=== PATIENT | female | born 2005 | race Asian ===

== ENCOUNTER 2025-01-14 10:09 | Emergency (ER) | payer MEDICAID ==
[~2025-01-14] VITALS: Ht 142.2 cm; Wt 65.9 kg
[~2025-01-14 10:09] MED LIST: ALBU8HFA PO
[2025-01-14] MEDS ORDERED: acetaminophen 325mg tablet PO ONE ×2 (10:45)
[2025-01-14] MEDS: acetaminophen 325mg tablet PO ONE (10:52)
--- NOTE | 2025-01-14 10:57 | RADIOLOGY REPORT ---
EXAM: XR Abdomen, 1 View CLINICAL INDICATION: left flank pain TECHNIQUE: Frontal supine view of the abdomen/pelvis. COMPARISON: None FINDINGS: GASTROINTESTINAL TRACT: Fecal retention in the colon consistent with constipation. No dilation. BONES/JOINTS: Unremarkable. No acute fracture. OTHER FINDINGS: . IMPRESSION: Fecal retention in the colon consistent with constipation.
[2025-01-14 11:03] LABS: BASOPHILS % (AUTO) 0.3 % (0-1); EOSINOPHILS % (AUTO) 0 % (0-6); HEMATOCRIT 38.6 % (35.0-45.0); HEMOGLOBIN 13.1 g/dl (12.0-16.0); LYMPHOCYTES # (AUTO) 1.7 X10'3 (1.1-4.8); LYMPHOCYTES % (AUTO) 15.1 % (21-51); MEAN CORPUSCULAR HEMOGLOBIN 29.3 PG (27.0-31.0); MEAN CORPUSCULAR HGB CONC 33.8 g/dL (33.0-36.5); MEAN CORPUSCULAR VOLUME 86.5 FL (78-98); MEAN PLATELET VOLUME 7.1 FL (7.4-10.4); MONOCYTES # (AUTO) 1.1 X10'3 (0-0.9); MONOCYTES % (AUTO) 9.7 % (2-12); NEUTROPHILS # (AUTO) 8.5 X10'3 (1.8-7.7); NEUTROPHILS % (AUTO) 74.9 % (42-75); PLATELET COUNT 335 X10'3 (140-440); RED BLOOD COUNT 4.47 X10'6 (4.20-5.60); WHITE BLOOD COUNT 11.3 X10'3 (4.5-11.0)
[2025-01-14 11:04] LABS: ALANINE AMINOTRANSFERASE 57 U/L (12-78); ALBUMIN 3.4 G/DL (3.4-5.0); ALBUMIN/GLOBULIN RATIO 0.7 (1.1-1.5); ALKALINE PHOSPHATASE 78 IU/L (46-116); ANION GAP 8 (8-16); ASPARTATE AMINO TRANSFERASE 44 U/L (10-37); BILIRUBIN,TOTAL 0.6 MG/DL (0.1-1.0); BLOOD UREA NITROGEN 8 MG/DL (7-18); BUN/CREATININE RATIO 6.8 (10.0-20.0); CALCIUM 8.7 MG/DL (8.5-10.1); CHLORIDE 99 MMOL/L (99-107); CREATININE 1.18 MG/DL (0.40-0.90); GLUCOSE 179 MG/DL (70-104); LIPASE 39 U/L (16-77); POTASSIUM 3.6 MMOL/L (3.5-5.1); SODIUM 134 MMOL/L (135-145); TOTAL CARBON DIOXIDE 26.6 MMOL/L (24-32); TOTAL PROTEIN 8.2 G/DL (6.4-8.2); eCRCL 43 ML/MIN; eGFR 58 ML/MIN
[2025-01-14] MEDS: normal saline 1000ml 1,000 ML IV ONE (11:18)
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
[2025-01-14 11:22] LABS: URINE HCG NEGATIVE (NEG)
[2025-01-14 11:23] LABS: BILIRUBIN,URINE NEGATIVE (Neg); CLARITY,URINE SLIGHTLY CLOUDY (Clear); COLOR,URINE YELLOW (Yellow); GLUCOSE, URINE NEGATIVE (Neg); KETONES,URINE NEGATIVE (Neg); LEUKOCYTE ESTERASE ,URINE MODERATE (Neg); NITRITES, URINE POSITIVE (Neg); OCCULT BLOOD,URINE TRACE-INTACT (Neg); PROTEIN,URINE 30 mg/dl (Neg)
[2025-01-14 11:24] LABS: UA COLLECTION TYPE NON-SPECIFIED
[2025-01-14] MEDS ORDERED: iohexol 350MG/ML 100ml bottle IV ONE (11:28)
[2025-01-14 11:29] LABS: BACTERIA,URINE 3+ /HPF (Neg); MUCUS STRANDS FEW /LPF (Neg); RBC,URINE 0-2 /HPF (0-2); SQUAMOUS EPITHELIAL CELL,UR FEW /LPF (FEW); WBC,URINE 50-100 /HPF (0-4)
[2025-01-14 11:36] LABS: URINE AMPHETAMINE SCREEN NEGATIVE (Neg); URINE BARBITUATE SCREEN NEGATIVE (Neg); URINE BENZODIAZEPINES SCREEN NEGATIVE (Neg); URINE CANNABINOID SCREEN POSITIVE (Neg); URINE COCAINE SCREEN NEGATIVE (Neg); URINE METHADONE SCREEN NEGATIVE (Neg); URINE OPIATE SCREEN NEGATIVE (Neg); URINE PHENCYCLIDINE SCREEN NEGATIVE (Neg)
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
[2025-01-14] MEDS: FOSFOMYCIN TROMETHAMINE 3 GM PACKET PO ONE (13:13)
[2025-01-14] MEDS: CefTRIAXone 2gm/D5W 50ml BAG 50 ML IV ONE ×2 (13:13→13:33)
[2025-01-14] MEDS: normal saline 1000ML IV soln IV ONE (13:13)
[2025-01-14] MEDS: normal saline 1000ML IV soln IVB ONE (13:13)
[2025-01-14] MEDS: morphine 2 MG/ML inj. syringe IV ONE (14:10)
[2025-01-14 14:43] VITALS: BP 118/79; PULSE 103; RESP 18; TEMP 98.7; O2SAT 99
== END 2025-01-14 14:50 | disposition home or self-care (01) ==
LOC: ER 10:10
DX: S06.0XAA Concussion with loss of consciousness status unknown, initial encounter (principal); N39.0 Urinary tract infection, site not specified; Y04.8XXA Assault by other bodily force, initial encounter; Y93.89 Activity, other specified; Y92.89 Other specified places as the place of occurrence of the external cause; Y99.8 Other external cause status
CPT/HCPCS: 36415; 70450; 70496; 70498; 74018; 80053; 80305; 81001; 81025; 83690; 83735; 85025; 87077; 87088; 87186; 96361; 96365; 96375; 99285; J0696; J2270; J7030; Q9967